=== PATIENT | male | born 1995 | race African-American/Black ===

== ENCOUNTER → 2023-12-12 08:42 | Outpatient (REF) | payer OTHER, SELFPAY ==
--- NOTE | 2023-12-12 09:52 | CARDSERVLU ---
Echocardiogram with Lumason completed after protocol screening completed. Allergies verified.
Patent IV site: _Right antecubital 22 G PC_site clear, rapid blood return___
IV site flushed with 0.9% NaCl pre and post administration.
Diluted bolus method utilized to enhance visualization of ventricular henson.
Total volume given: _4___ mL
Patient tolerated all procedures well without complications.
Heplock D/C ed at 0930, site clear, no redness, no edema. No bleeding,2x2 applied and taped. Pt offers no complaints.
== END ==
LOC: RCS 08:42
PROVIDERS: ATTENDING PHYSICIAN Internal Medicine; FAMILY PHYSICIAN Nurse Practitioner Primary Care
DX: I42.8 Other cardiomyopathies (principal); I50.22 Chronic systolic (congestive) heart failure
CPT/HCPCS: 93306; Q9950